=== PATIENT | female | born 1985 | race Caucasian/White ===

== ENCOUNTER 2018-12-24 19:51 | Emergency (ER) | payer MEDICAID ==
[2018-12-24 20:08] VITALS: PULSE 132
[2018-12-24] MEDS ORDERED: methylPREDNISolone Sodium Succinate 40 MG/1 ML SDV IM ONE (20:13)
--- NOTE | 2018-12-24 20:23 | EDM.PDOC ---
ED HPI GENERAL MEDICAL PROBLEM - General Chief Complaint: General Stated Complaint: ALLERGIC REACTION Time Seen by Provider: 12/24/18 20:10 Source of Information: Reports: Patient, Family, RN - History of Present Illness INITIAL COMMENTS - FREE TEXT/NARRATIVE: 33 yr female presents with itching, rash, urticaria,, lip swelling noted. States she was working in the garden today and doesn't know what caused this. She did get in the shower and took Benadryl 50 mg PO at home. States this started around 630/7pm. Urticaria to abdomen is improving, but itching to legs continues. Pt has been anxious with this. 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 History: C Section 13 years ago Social & Family History - Family History Family Medical History: Noncontributory - Caffeine Use Caffeine Use: Reports: Soda ED ROS GENERAL - Review of Systems Review Of Systems: See Below Constitutional: Reports: No Symptoms HEENT: Reports: Other (lip swelling) Respiratory: Reports: No Symptoms Cardiovascular: Reports: No Symptoms Skin: Reports: Pruritis, Urticaria Neurological: Reports: No Symptoms Psychiatric: Reports: No Symptoms Hematologic/Lymphatic: Reports: No Symptoms ED EXAM, GENERAL - Physical Exam Exam: See Below Exam Limited By: No Limitations General Appearance: Alert, No Apparent Distress Ears: Hearing Grossly Normal, Other (some ear lobe swelling) Nose: Normal Inspection, Normal Mucosa Throat/Mouth: Normal Voice, No Airway Compromise, Other (lip swelling) Head: Atraumatic, Normocephalic Neck: Supple, Non-Tender, Full Range of Motion Respiratory/Chest: No Respiratory Distress, Lungs Clear, Normal Breath Sounds Cardiovascular: Normal Peripheral Pulses, Regular Rate, Rhythm, No Edema GI/Abdominal: Normal Bowel Sounds, Soft, Non-Tender Back Exam: Normal Inspection, Full Range of Motion Extremities: Normal Inspection, Normal Range of Motion, No Pedal Edema Neurological: Alert, Oriented, Normal Cognition Psychiatric: Normal Affect, Normal Mood Skin Exam: Warm, Dry, Rash Lymphatic: No Adenopathy Course - Vital Signs Last Recorded V/S: Last Vital Signs Temp 97.9 F 12/24/18 20:00 Pulse 132 H 12/24/18 20:00 Resp 20 12/24/18 20:00 BP 156/110 H 12/24/18 20:00 Pulse Ox 99 12/24/18 20:00 - Orders/Labs/Meds Meds: Medications Discontinued Medications Generic Name Dose Route Start Last Admin Trade Name Queenie PRN Reason Stop Dose Admin Methylprednisolone Sodium Succinate 60 mg 12/24/18 20:13 Solu-Medrol IM 12/24/18 20:14 ONETIME ONE Departure - Departure Time of Disposition: 20:42 Disposition: Home, Self-Care 01 Condition: Good Clinical Impression: Allergic reaction - Discharge Information *PRESCRIPTION DRUG MONITORING PROGRAM REVIEWED*: Not Applicable *COPY OF PRESCRIPTION DRUG MONITORING REPORT IN PATIENT CHARITY: Not Applicable - Assessment/Plan Plan: Solu-Medrol 80 mg IM given. Symptoms improved, lip swelling less, rash less, pt feeling better and less anxious. Recommend use of Benadryl as needed, 1-2 tab every 4-6 hour, not to exceed 12 in 24 hour, for the next 5 days. Rx for Prednisone taper dose, instructed on use. RTC or ER if symptoms worsen, F/U with PCP next week as needed.
[2018-12-24 20:35] VITALS: BP 153/109
== END 2018-12-24 20:40 | disposition home or self-care (01) ==
LOC: LB.ED 19:51
DX: T78.40XA Allergy, unspecified, initial encounter (principal)
CPT/HCPCS: 96372; 99282; J2920

== ENCOUNTER 2021-01-29 00:43 | Emergency (ER) | payer MEDICAID ==
[2021-01-29 00:54] VITALS: BP 131/82; PULSE 103
[2021-01-29] MEDS: methylPREDNISolone Sodium Succinate 125 MG/2 ML SDV IM ONE (00:59)
--- NOTE | 2021-01-29 01:05 | EDM.PDOC ---
ED HPI GENERAL MEDICAL PROBLEM - General Chief Complaint: Allergic Reaction Stated Complaint: ALLERGIC REACTION Time Seen by Provider: 01/29/21 00:50 Source of Information: Reports: Patient History Limitations: Reports: No Limitations - History of Present Illness INITIAL COMMENTS - FREE TEXT/NARRATIVE: patient presented to the ER with a c/o generalized hives all over her body. it occurred while she is asleep. Not sure what she is allergic too. She had shrimp for dinner - but she has shrimps before and was ok. Denies wheezes, CP, no fever or chills. 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 History: C Section 13 years ago - Past Surgical History Female Surgical History: Reports: Section Musculoskeletal Surgical History: Reports: Shoulder Surgery, Other (See Below) Other Musculoskeletal Surgeries/Procedures:: bilateral arthroscopic shoulder surgeries Social & Family History - Family History Family Medical History: No Pertinent Family History - Caffeine Use Caffeine Use: Reports: Soda ED ROS ALLERGIC REACTION - Review of Systems Review Of Systems: See Below Constitutional: Reports: No Symptoms HEENT: Reports: No Symptoms Respiratory: Reports: No Symptoms Cardiovascular: Reports: No Symptoms GI/Abdominal: Reports: No Symptoms Musculoskeletal: Reports: No Symptoms Skin: Reports: Pruritis, Rash Neurological: Reports: No Symptoms ED EXAM GENERAL NO PERIP PULSE - Physical Exam Exam: See Below Exam Limited By: No Limitations General Appearance: Alert, WD/WN, Anxious Eye Exam: Bilateral Eye: EOMI, PERRL Head: Atraumatic Respiratory/Chest: No Respiratory Distress Cardiovascular: Normal Peripheral Pulses Neurological: Alert, Oriented Skin Exam: Rash Course - Vital Signs Last Recorded V/S: Last Vital Signs Temp 36.5 C 01/29/21 00:49 Pulse 103 H 01/29/21 00:49 Resp 18 09/13/21 00:49 BP 131/82 01/29/21 00:49 Pulse Ox 97 01/29/21 00:49 - Orders/Labs/Meds Meds: Medications Discontinued Medications Generic Name Dose Route Start Last Admin Trade Name Queenie PRN Reason Stop Dose Admin Methylprednisolone Sodium Succinate 125 mg 01/29/21 00:58 01/29/21 00:59 Methylprednisolone Sodium Succinate 125 Mg/2 Ml Sdv IM 01/29/21 00:59 125 mg ONETIME ONE Administration - Re-Assessments/Exams Free Text/Narrative Re-Assessment/Exam: 01/29/21 01:05 IM solumedrol was given vitals WNL Departure - Departure Time of Disposition: 01:05 Disposition: Home, Self-Care 01 Condition: Good Clinical Impression: Allergic reaction - Discharge Information *PRESCRIPTION DRUG MONITORING PROGRAM REVIEWED*: Not Applicable *COPY OF PRESCRIPTION DRUG MONITORING REPORT IN PATIENT CHARITY: Not Applicable Prescriptions: methylPREDNISolone [Medrol Dose Pack] 84 mg PO DAILY #1 dospk Instructions: Allergies, Adult Referrals: PCP,Unknown [Primary Care Provider] - Forms: ED Department Discharge Additional Instructions: - ok to continue with benadryl as needed - start taking cortisone as prescribed - prescription was sent to [email or web address] - return to the ER if any worsening of symptoms, otherwise follow up with your PCP Sepsis Event Note (ED) - Focused Exam Vital Signs: Vital Signs Temp Pulse Resp BP Pulse Ox 01/29/21 00:49 36.5 C 103 H 18 131/82 97 - Problem List & Annotations (1) Allergic reaction SNOMED Code(s): 375720104 Code(s): T78.40XA - ALLERGY, UNSPECIFIED, INITIAL ENCOUNTER Status: Acute Priority: Low Current Visit: No Qualifiers: Encounter type: initial encounter Qualified Code(s): T78.40XA - Allergy, unspecified, initial encounter - Problem List Review Problem List Initiated/Reviewed/Updated: Yes - Assessment/Plan Plan: - ok to continue with benadryl as needed - start taking cortisone as prescribed - prescription was sent to [email or web address] pharmacy - return to the ER if any worsening of symptoms, otherwise follow up with your PCP
== END 2021-01-29 01:20 | disposition home or self-care (01) ==
LOC: LB.ED 00:43
DX: T78.1XXA Other adverse food reactions, not elsewhere classified, initial encounter (principal); I10 Essential (primary) hypertension; Z79.899 Other long term (current) drug therapy
CPT/HCPCS: 96372; 99283; J2930

== ENCOUNTER 2023-02-21 21:56 | Emergency (ER) | payer MEDICAID ==
[2023-02-21 22:02] VITALS: BP 153/107; PULSE 110
[2023-02-21] MEDS ORDERED: Lidocaine 1% with EPINEPHrine 1:100,000 20 ML MDV INJECT ONE (22:30)
[2023-02-21] MEDS ORDERED: Bacitracin Oint 1 GM U/D Packet TOP ONE (22:44)
[2023-02-21] MEDS ORDERED: Diphtheria,Pertussis(Acell),Tetanus Vaccine 0.5 ML Syringe IM ONE (22:51)
[2023-02-21] MEDS ORDERED: Lidocaine 1% with EPINEPHrine 1:100,000 50 ML MDV INFILT ONE (22:52)
== END 2023-02-21 22:50 | disposition home or self-care (01) ==
LOC: LB.ED 21:56
DX: S61.411A Laceration without foreign body of right hand, initial encounter (principal); I10 Essential (primary) hypertension; Z23 Encounter for immunization; Z87.891 Personal history of nicotine dependence; Z98.890 Other specified postprocedural states; W25.XXXA Contact with sharp glass, initial encounter; Y93.G3 Activity, cooking and baking
CPT/HCPCS: 12001; 90471; 90715; 99282; 99282-25

== ENCOUNTER 2023-06-01 14:23 | Inpatient (IN) | payer MEDICAID ==
[2023-06-01] MEDS ORDERED: Sodium Chloride 0.9% 10 ML Syringe FLUSH PRN (14:24)
[2023-06-01] MEDS ORDERED: Sodium Chloride 0.9% 1,000 ML IV SCH ×2 (14:30→16:45)
[2023-06-01 14:42] LABS: HEMATOCRIT 39.4 % (37.0-47.0); HEMOGLOBIN 13.7 g/dL (11.5-16.5); MEAN CORPUSCULAR HEMOGLOBIN 33.4 pg (27.0-32.0); MEAN CORPUSCULAR HGB CONC 34.8 g/dL (31.0-35.0); MEAN PLATELET VOLUME 9.5 fL (6.0-10.0); RED BLOOD CELL COUNT 4.1 M/uL (3.80-5.80); RED CELL DISTRIBUTION WIDTH 13.1 % (11.0-16.0); WHITE BLOOD CELL COUNT,WBC 16.7 K/uL (4.0-11.0)
[2023-06-01 14:51] LABS: ETHANOL BLOOD MEDICAL < 3.0 mg/dL (<3.0); LIPASE 33 U/L (16-77)
[2023-06-01] MEDS ORDERED: Ondansetron 4 MG/2 ML SDV IVPUSH ONE (15:12)
[2023-06-01] MEDS ORDERED: LORazepam 2 MG/ML SDV IVPUSH ONE (15:13)
[2023-06-01 15:17] LABS: A/G RATIO 1.1 (0.8-2.0); ALBUMIN 4.9 g/dL (3.4-5.0); ANION GAP 28.8 mmol/L (5.0-15.0); BILIRUBIN TOTAL 0.7 mg/dL (0.0-1.0); BUN/CREATININE RATIO 9.2 (6-25); CALCIUM 6.9 mg/dL (8.5-10.1); CARBON DIOXIDE,CO2 19.1 mmol/L (21.0-32.0); CREATININE 2.07 mg/dL (0.55-1.02); EST CRCL DRUG DOSING (CG) 32.13 mL/min; PHOSPHORUS 2.8 mg/dL (2.5-4.9); PROTEIN TOTAL,TP 9.5 g/dL (6.4-8.2); TROPONIN I HIGH SENSITIVITY 9.6 pg/ml (<=60.4)
[2023-06-01 15:19] LABS: MAGNESIUM 0.3 mg/dL (1.8-2.4); POTASSIUM,K 1.9 mmol/L (3.5-5.1)
[2023-06-01] MEDS ORDERED: Potassium Chloride Riders 10 MEQ in Premix Bag 1 BAG IV ONE (15:23)
[2023-06-01 16:23] LABS: APPEARANCE,URINE TURBID (CLEAR); BILIRUBIN,URINE SMALL (NEGATIVE); COLOR,URINE YELLOW; GLUCOSE,URINE NEGATIVE (NEGATIVE); KETONES,URINE 15 mg/dL (NEGATIVE); LEUKOCYTE ESTERASE,URINE NEGATIVE (NEGATIVE); NITRITE,URINE NEGATIVE (NEGATIVE); OCCULT BLOOD,URINE MODERATE (NEGATIVE); PROTEIN,URINE >=300 mg/dL (NEGATIVE); UROBILINOGEN,URINE 0.2 E.U./dL (0.2-1.0)
[2023-06-01 16:29] LABS: AMPHETAMINES SCREEN, URINE NEGATIVE (NEGATIVE); BARBITURATE SCREEN,URINE NEGATIVE (NEGATIVE); BENZODIAZEPINES SCREEN,URINE NEGATIVE (NEGATIVE); METHADONE SCREEN, URINE NEGATIVE (NEGATIVE); METHAMPHETAMINES SCREEN, URINE NEGATIVE (NEGATIVE); OXYCODONE SCREEN,URINE NEGATIVE (NEGATIVE); RBC,URINE 0-5 /HPF; THC SCREEN,URINE 50 NG/ML POSITIVE (NEGATIVE); WBC,URINE 0-5 /HPF
[2023-06-01 16:30] LABS: AMORPHOUS SEDIMENT,URINE MANY /HPF; BACTERIA,URINE OCCASIONAL /HPF; SQUAMOUS EPITHELIAL CELLS,UR FEW /HPF
[2023-06-01] MEDS ORDERED: Ondansetron 4 MG Tab.DIS PO PRN (17:30)
[2023-06-01] MEDS ORDERED: LORazepam 2 MG/ML SDV IV SCH (17:45)
[2023-06-01] MEDS: NS + KCl 20mEq/L 1,000 ML IV SCH ×2 (18:54→23:15)
[2023-06-01] MEDS: Folic Acid 1 MG Tab PO SCH (18:54)
[2023-06-01] MEDS: Thiamine 100 MG Tab PO SCH (18:54)
[2023-06-02] MEDS: NS + KCl 20mEq/L 1,000 ML IV SCH ×2 (05:20→15:00)
[2023-06-02] MEDS: Thiamine 100 MG Tab PO SCH (07:54)
[2023-06-02] MEDS: Folic Acid 1 MG Tab PO SCH (07:54)
[2023-06-02 08:12] LABS: ANION GAP 14.8 mmol/L (5.0-15.0); BUN/CREATININE RATIO 13.9 (6-25); CARBON DIOXIDE,CO2 24.4 mmol/L (21.0-32.0); CREATININE 0.79 mg/dL (0.55-1.02); EST CRCL DRUG DOSING (CG) 84.19 mL/min; MAGNESIUM 1.6 mg/dL (1.8-2.4)
[2023-06-02 08:19] LABS: CALCIUM 5.5 mg/dL (8.5-10.1); POTASSIUM,K 2.2 mmol/L (3.5-5.1)
[2023-06-02] MEDS ORDERED: Zolpidem 5 MG Tab PO PRN (09:59)
[2023-06-02 10:00] LABS: HEMATOCRIT 31.7 % (37.0-47.0); HEMOGLOBIN 10.7 g/dL (11.5-16.5); MEAN CORPUSCULAR HEMOGLOBIN 33.1 pg (27.0-32.0); MEAN CORPUSCULAR HGB CONC 33.8 g/dL (31.0-35.0); MEAN PLATELET VOLUME 9.7 fL (6.0-10.0); RED BLOOD CELL COUNT 3.23 M/uL (3.80-5.80); RED CELL DISTRIBUTION WIDTH 13.3 % (11.0-16.0); WHITE BLOOD CELL COUNT,WBC 10.5 K/uL (4.0-11.0)
[2023-06-02] MEDS: Acetaminophen 325 MG Tab PO PRN (10:46)
[2023-06-02] MEDS: Calcium Gluconate 10% 1 GM/10 ML SDV IVPUSH SCH ×2 (10:46→19:16)
[2023-06-02] MEDS: Montelukast 10 MG Tab PO SCH (10:46)
[2023-06-02] MEDS: Potassium Chloride 20 MEQ Tab.ER PO SCH ×2 (10:46→19:16)
[2023-06-02] MEDS: Omeprazole 20 MG Cap.CR PO SCH (10:46)
[2023-06-02] MEDS: Gabapentin 100 MG Cap PO SCH ×2 (13:44→19:16)
[2023-06-02] MEDS ORDERED: Potassium Chloride Riders 50 ML ONE (22:38)
[2023-06-02] MEDS ORDERED: predniSONE 10 MG Tab ONE (22:40)
[2023-06-02] MEDS ORDERED: NS + KCl 20mEq/L 1,000 ML IV SCH (23:00)
[2023-06-03] MEDS ORDERED: Hydrochlorothiazide 25 MG Tab PO SCH (08:00)
[2023-06-03] MEDS ORDERED: Lisinopril 20 MG Tab PO SCH (08:00)
[2023-06-03] MEDS: Omeprazole 20 MG Cap.CR PO SCH (08:09)
[2023-06-03] MEDS: Montelukast 10 MG Tab PO SCH (08:09)
[2023-06-03] MEDS: Thiamine 100 MG Tab PO SCH (08:10)
[2023-06-03] MEDS: Potassium Chloride 20 MEQ Tab.ER PO SCH (08:10)
[2023-06-03] MEDS: Gabapentin 100 MG Cap PO SCH ×2 (08:10→14:33)
[2023-06-03] MEDS: Folic Acid 1 MG Tab PO SCH (08:10)
[2023-06-03 08:37] LABS: BUN/CREATININE RATIO 9.5 (6-25); CARBON DIOXIDE,CO2 26.9 mmol/L (21.0-32.0); CREATININE 0.63 mg/dL (0.55-1.02); EST CRCL DRUG DOSING (CG) 105.58 mL/min; MAGNESIUM 1.4 mg/dL (1.8-2.4)
[2023-06-03 08:43] LABS: POTASSIUM,K 2.9 mmol/L (3.5-5.1)
[2023-06-03 08:44] LABS: CALCIUM 5.9 mg/dL (8.5-10.1)
[2023-06-03] MEDS ORDERED: Magnesium Sulfate/Water 50 ML IV ONE (08:55)
[2023-06-03] MEDS ORDERED: Calcium Gluconate 10% 1 GM/10 ML SDV IVPUSH ONE (08:56)
[2023-06-03] MEDS ORDERED: Calcium Gluconate 10% 1 GM/10 ML SDV ONE (11:28)
[2023-06-03] MEDS ORDERED: Magnesium Sulfate/Water 50 ML ONE (11:28)
[2023-06-03] MEDS: Acetaminophen 325 MG Tab PO PRN (11:39)
[2023-06-03 16:16] VITALS: BP 146/99; PULSE 79
[2023-06-03 16:43] LABS: ANION GAP 9.7 mmol/L (5.0-15.0); BUN/CREATININE RATIO 9.5 (6-25); CARBON DIOXIDE,CO2 29.7 mmol/L (21.0-32.0); CREATININE 0.63 mg/dL (0.55-1.02); EST CRCL DRUG DOSING (CG) 105.58 mL/min; POTASSIUM,K 3.4 mmol/L (3.5-5.1)
== END 2023-06-03 17:51 | disposition home or self-care (01) | DRG 641 ==
LOC: LB.ED 14:23 → LB.MS 17:27 → UNDOADMIN 17:30
PROVIDERS: ADMIT Surgery; ATTEND Surgery
DX: E86.0 Dehydration (principal); N17.9 Acute kidney failure, unspecified; E87.6 Hypokalemia; I10 Essential (primary) hypertension; F10.20 Alcohol dependence, uncomplicated; K21.9 Gastro-esophageal reflux disease without esophagitis; E83.42 Hypomagnesemia; E87.8 Other disorders of electrolyte and fluid balance, not elsewhere classified; F17.210 Nicotine dependence, cigarettes, uncomplicated; R11.2 Nausea with vomiting, unspecified; F12.10 Cannabis abuse, uncomplicated; Z79.899 Other long term (current) drug therapy; Z79.52 Long term (current) use of systemic steroids; Z98.890 Other specified postprocedural states; Z98.891 History of uterine scar from previous surgery
CPT/HCPCS: 36415; 70450; 80048; 80053; 80307; 81001; 83690; 83735; 84100; 84484; 85027; 93005; 93010; 96361; 96365; 96368; 96375; 99222; 99232; 99238; 99285-25; A0425; A0429; A9270-GY; J0612; J2060; J2405; J3475; J3480; J7030

== ENCOUNTER 2024-02-09 12:27 | Inpatient (IN) | payer MEDICAID ==
[2024-02-09] MEDS: Ondansetron 4 MG/2 ML SDV IVPUSH ONE (12:38)
[2024-02-09] MEDS: LORazepam 2 MG/ML SDV IVPUSH ONE (12:42)
[2024-02-09] MEDS: Folic Acid 50 MG/10 ML MDV IVPUSH ONE (12:48)
[2024-02-09 12:55] LABS: BASOPHILS ABSOLUTE AUTO 0.04 K/uL (0.02-0.10); BASOPHILS PERCENT AUTO 0.4 % (0.0-0.5); EOSINOPHILS ABSOLUTE AUTO 0.02 K/uL (0.04-0.40); EOSINOPHILS PERCENT AUTO 0.2 % (1.0-5.0); HEMATOCRIT 39.9 % (37.0-47.0); HEMOGLOBIN 14.2 g/dL (11.5-16.5); LYMPHOCYTES ABSOLUTE AUTO 2.27 K/uL (1.50-4.00); LYMPHOCYTES PERCENT AUTO 23.2 % (20.0-40.0); MEAN CORPUSCULAR HEMOGLOBIN 33.2 pg (27.0-32.0); MEAN CORPUSCULAR HGB CONC 35.6 g/dL (31.0-35.0); MEAN CORPUSCULAR VOLUME 93 fL (76-96); MEAN PLATELET VOLUME 9.3 fL (6.0-10.0); MONOCYTES PERCENT AUTO 8.2 % (3.0-10.0); NEUTROPHILS ABSOLUTE AUTO 6.64 K/uL (2.00-7.50); PLATELET COUNT,PLT 323 K/uL (150-500); RED BLOOD CELL COUNT 4.28 M/uL (3.80-5.80); RED CELL DISTRIBUTION WIDTH 13.2 % (11.0-16.0); WHITE BLOOD CELL COUNT,WBC 9.8 K/uL (4.0-11.0)
[2024-02-09] MEDS: Thiamine 200 MG/2 ML MDV IVPUSH ONE (12:56)
[2024-02-09] MEDS: Magnesium Sulfate/Water Premix 50 ML IV ONE (12:58)
[2024-02-09 13:10] LABS: A/G RATIO 1.2 (0.8-2.0); ALBUMIN 4.7 g/dL (3.4-5.0); BILIRUBIN TOTAL 0.9 mg/dL (0.0-1.0); BUN/CREATININE RATIO 7.3 (6-25); CALCIUM 7.6 mg/dL (8.5-10.1); CREATININE 1.23 mg/dL (0.55-1.02); EST CRCL DRUG DOSING (CG) 53.55 mL/min; PROTEIN TOTAL,TP 8.5 g/dL (6.4-8.2)
[2024-02-09 13:13] LABS: ANION GAP 27.1 mmol/L (5.0-15.0); POTASSIUM,K 2.1 mmol/L (3.5-5.1)
[2024-02-09] MEDS ORDERED: NS + KCl 20mEq/L 1,000 ML IV SCH (13:15)
[2024-02-09] MEDS: Potassium Chloride 20 MEQ Tab.ER PO ONE (13:30)
[2024-02-09] MEDS: NS with KCl 40mEq 1,000 ML ONE (13:36)
[2024-02-09] MEDS: NS + KCl 20mEq/L 1,000 ML ONE (13:36)
[2024-02-09] MEDS: NS with KCl 40mEq 1,000 ML IV SCH ×2 (13:36→21:17)
[2024-02-09] MEDS ORDERED: LORazepam 2 MG/ML SDV IVPUSH PRN (14:27)
[2024-02-09] MEDS ORDERED: Sodium Chloride 0.9% 10 ML Syringe FLUSH PRN (14:31)
[2024-02-09] MEDS: Calcium Gluconate 10% 1 GM/10 ML SDV IVPUSH SCH (15:20)
[2024-02-09] MEDS: LORazepam 2 MG/ML SDV IVPUSH SCH (16:29)
[2024-02-09] MEDS: Potassium Chloride 20 MEQ Tab.ER PO SCH (19:51)
[2024-02-09] MEDS: Zolpidem 5 MG Tab PO PRN (21:19)
[2024-02-10] MEDS: NS with KCl 40mEq 1,000 ML IV SCH (01:20)
[2024-02-10] MEDS: Thiamine 100 MG Tab PO SCH (08:20)
[2024-02-10] MEDS: Folic Acid 1 MG Tab PO SCH (08:20)
[2024-02-10 08:40] LABS: A/G RATIO 1.1 (0.8-2.0); ALBUMIN 3.3 g/dL (3.4-5.0); ANION GAP 11.4 mmol/L (5.0-15.0); BUN/CREATININE RATIO 9.3 (6-25); CALCIUM 6.9 mg/dL (8.5-10.1); CARBON DIOXIDE,CO2 23.8 mmol/L (21.0-32.0); CREATININE 0.75 mg/dL (0.55-1.02); EST CRCL DRUG DOSING (CG) 87.82 mL/min; POTASSIUM,K 4.2 mmol/L (3.5-5.1); PROTEIN TOTAL,TP 6.4 g/dL (6.4-8.2)
[2024-02-10] MEDS: Magnesium Sulfate/Water Premix 2 GM in Premix Bag 1 BAG IV ONE (10:32)
[2024-02-10] MEDS: Calcium Carbonate/Vitamin D3 1500 MG-400 Units Tab PO SCH (10:33)
[2024-02-10] MEDS: LORazepam 0.5 MG Tab PO SCH (17:39)
[2024-02-10 18:26] VITALS: BP 136/90; PULSE 75
== END 2024-02-10 17:00 | disposition home or self-care (01) | DRG 641 ==
LOC: LB.ED 12:27 → LB.MS 14:05
PROVIDERS: ADMIT Emergency Medicine; ATTEND Emergency Medicine
DX: E87.6 Hypokalemia (principal); F10.10 Alcohol abuse, uncomplicated; K21.9 Gastro-esophageal reflux disease without esophagitis; E83.51 Hypocalcemia; E86.0 Dehydration; G89.29 Other chronic pain; M54.9 Dorsalgia, unspecified; I10 Essential (primary) hypertension; R56.9 Unspecified convulsions; Z88.8 Allergy status to other drugs, medicaments and biological substances; Z87.891 Personal history of nicotine dependence; Z79.899 Other long term (current) drug therapy
CPT/HCPCS: 36415; 80053; 80307; 84132; 85025; 96365; 96375; 99222; 99238; 99285-25; A9270-GY; J0612; J2060; J2405; J3411; J3475; J3480; J3490

== ENCOUNTER 2024-03-05 11:56 | Inpatient (IN) | payer MEDICAID ==
[2024-03-05] MEDS ORDERED: Sodium Chloride 0.9% 10 ML Syringe FLUSH PRN (12:10)
[2024-03-05 12:27] LABS: BASOPHILS ABSOLUTE AUTO 0.03 K/uL (0.02-0.10); BASOPHILS PERCENT AUTO 0.3 % (0.0-0.5); EOSINOPHILS ABSOLUTE AUTO 0.07 K/uL (0.04-0.40); EOSINOPHILS PERCENT AUTO 0.6 % (1.0-5.0); HEMATOCRIT 34.4 % (37.0-47.0); HEMOGLOBIN 11.7 g/dL (11.5-16.5); LYMPHOCYTES ABSOLUTE AUTO 1.15 K/uL (1.50-4.00); LYMPHOCYTES PERCENT AUTO 10.3 % (20.0-40.0); MEAN CORPUSCULAR HEMOGLOBIN 33.3 pg (27.0-32.0); MEAN CORPUSCULAR VOLUME 98 fL (76-96); MEAN PLATELET VOLUME 9.6 fL (6.0-10.0); MONOCYTES ABSOLUTE AUTO 0.98 K/uL (0.20-0.80); MONOCYTES PERCENT AUTO 8.8 % (3.0-10.0); NEUTROPHILS ABSOLUTE AUTO 8.92 K/uL (2.00-7.50); PLATELET COUNT,PLT 231 K/uL (150-500); RED BLOOD CELL COUNT 3.51 M/uL (3.80-5.80); RED CELL DISTRIBUTION WIDTH 13.4 % (11.0-16.0); WHITE BLOOD CELL COUNT,WBC 11.2 K/uL (4.0-11.0)
[2024-03-05 12:49] LABS: ALANINE AMINOTRANSFERASE,ALT 25 U/L (12-78); ALBUMIN 3.5 g/dL (3.4-5.0); ALKALINE PHOSPHATASE 59 U/L (46-116); ASPARTATE AMNIOTRANSFERASE,AST 23 U/L (15-37); BILIRUBIN TOTAL 1.1 mg/dL (0.0-1.0); BLOOD UREA NITROGEN,BUN 6 mg/dL (8-26); BUN/CREATININE RATIO 9.4 (6-25); CALCIUM 6.7 mg/dL (8.5-10.1); CARBON DIOXIDE,CO2 29.3 mmol/L (21.0-32.0); CHLORIDE,CL 101 mmol/L (98-107); CREATININE 0.64 mg/dL (0.55-1.02); ESTIMATED GFR 116 mL/min (>60); GLUCOSE RANDOM 101 mg/dL (74-100); SODIUM,NA 143 mmol/L (136-145)
[2024-03-05 12:52] LABS: ANION GAP 15.4 mmol/L (5.0-15.0)
[2024-03-05 12:55] LABS: ETHANOL BLOOD MEDICAL < 3.0 mg/dL (<3.0); POTASSIUM,K 2.7 mmol/L (3.5-5.1); TROPONIN I HIGH SENSITIVITY 68.8 pg/ml (<=60.4)
[2024-03-05] MEDS: Lactated Ringers 1,000 ML IV ONE (13:10)
[2024-03-05 13:16] LABS: APPEARANCE,URINE CLEAR (CLEAR); COLOR,URINE YELLOW; PH,URINE 7.5 (5.0-8.0)
[2024-03-05 13:17] LABS: BILIRUBIN,URINE NEGATIVE (NEGATIVE); GLUCOSE,URINE NEGATIVE (NEGATIVE); KETONES,URINE 80 mg/dL (NEGATIVE); LEUKOCYTE ESTERASE,URINE TRACE (NEGATIVE); NITRITE,URINE NEGATIVE (NEGATIVE); OCCULT BLOOD,URINE TRACE-INTACT (NEGATIVE); PROTEIN,URINE NEGATIVE (NEGATIVE); UROBILINOGEN,URINE 0.2 E.U./dL (0.2-1.0)
[2024-03-05 13:19] LABS: RBC,URINE 0-5 /HPF; SQUAMOUS EPITHELIAL CELLS,UR FEW /HPF; WBC,URINE 0-5 /HPF
[2024-03-05] MEDS: Potassium Chloride Riders 10 MEQ in Premix Bag 1 BAG IV SCH (13:19)
[2024-03-05] MEDS ORDERED: Thiamine 100 MG in Sodium Chloride 0.9% 100 ML IV SCH (13:30)
[2024-03-05] MEDS: POTASSIUM CHLORIDE ONE (14:11)
[2024-03-05] MEDS ORDERED: Thiamine 200 MG/2 ML MDV IVPUSH ONE (14:30)
[2024-03-05] MEDS: Labetalol 100 MG/20 ML MDV IVPUSH ONE (14:53)
[2024-03-05] MEDS: LORazepam 2 MG/ML SDV IVPUSH PRN (14:56)
[2024-03-05] MEDS: LORazepam 2 MG/ML SDV ONE (15:15)
[2024-03-05] MEDS: Ondansetron 4 MG/2 ML SDV IVPUSH ONE (15:21)
[2024-03-05] MEDS: Lisinopril 20 MG Tab PO SCH (15:28)
[2024-03-05] MEDS: Labetalol 100 MG/20 ML MDV ONE (17:26)
[2024-03-05] MEDS: Thiamine 200 MG/2 ML MDV IVPUSH SCH (17:37)
[2024-03-05] MEDS: Multivitamin Tab PO SCH (17:37)
[2024-03-05] MEDS: Calcium Gluconate 10% 1 GM/10 ML SDV IVPUSH ONE (18:28)
[2024-03-05] MEDS: Folic Acid 50 MG/10 ML MDV IV SCH (18:32)
[2024-03-05] MEDS: Lactated Ringers 1,000 ML IV SCH (19:00)
[2024-03-05] MEDS: Calcium Gluconate 10% 1 GM/10 ML SDV ONE (19:16)
[2024-03-05] MEDS: Ondansetron 4 MG/2 ML SDV ONE (19:32)
[2024-03-05] MEDS: Thiamine 100 MG Tab ONE (19:43)
[2024-03-05] MEDS: Multivitamin Tab ONE (19:46)
[2024-03-05] MEDS: MVI, Adult with Vitamin K 10 ML SDV IV ONE (19:47)
[2024-03-05] MEDS: POTASSIUM CHLORIDE RIDERS IV ONE (21:15)
[2024-03-05] MEDS: Zolpidem 5 MG Tab PO SCH (22:13)
[2024-03-05 23:40] LABS: A/G RATIO 0.9 (0.8-2.0); ANION GAP 12.9 mmol/L (5.0-15.0); BILIRUBIN TOTAL 0.9 mg/dL (0.0-1.0); BUN/CREATININE RATIO 5.2 (6-25); CALCIUM 7.1 mg/dL (8.5-10.1); CARBON DIOXIDE,CO2 28.6 mmol/L (21.0-32.0); CREATININE 0.58 mg/dL (0.55-1.02); EST CRCL DRUG DOSING (CG) 113.57 mL/min; MAGNESIUM 1.8 mg/dL (1.8-2.4); PROTEIN TOTAL,TP 6.2 g/dL (6.4-8.2); TROPONIN I HIGH SENSITIVITY 36.9 pg/ml (<=60.4)
[2024-03-05 23:48] LABS: POTASSIUM,K 2.5 mmol/L (3.5-5.1)
[2024-03-06] MEDS: Potassium Chloride Riders 10 MEQ in Premix Bag 1 BAG IV SCH (00:40)
[2024-03-06] MEDS: Calcium Gluconate 10% 1 GM/10 ML SDV IVPUSH ONE (00:45)
[2024-03-06] MEDS: Calcium Gluconate 10% 1 GM/10 ML SDV ONE (00:52)
[2024-03-06] MEDS: Acetaminophen 325 MG Tab PO PRN (05:15)
[2024-03-06 08:30] LABS: A/G RATIO 0.9 (0.8-2.0); ANION GAP 10.3 mmol/L (5.0-15.0); BILIRUBIN TOTAL 0.9 mg/dL (0.0-1.0); BUN/CREATININE RATIO 3.6 (6-25); CALCIUM 7.3 mg/dL (8.5-10.1); CREATININE 0.55 mg/dL (0.55-1.02); EST CRCL DRUG DOSING (CG) 119.76 mL/min; MAGNESIUM 1.7 mg/dL (1.8-2.4); POTASSIUM,K 3.3 mmol/L (3.5-5.1); PROTEIN TOTAL,TP 6.2 g/dL (6.4-8.2)
[2024-03-06] MEDS: Folic Acid 50 MG/10 ML MDV IVPUSH SCH (08:51)
[2024-03-06] MEDS: Acetaminophen 500 MG Tab PO ONE (09:46)
[2024-03-06 09:55] VITALS: BP 135/89; PULSE 66
[2024-03-06] MEDS ORDERED: Zolpidem 5 MG Tab PO SCH (20:00)
== END 2024-03-06 10:15 | disposition home or self-care (01) | DRG 641 ==
LOC: LB.ED 11:56 → LB.MS 16:58
PROVIDERS: ADMIT Surgery; ATTEND Surgery
DX: E86.0 Dehydration (principal); E83.42 Hypomagnesemia; E83.51 Hypocalcemia; E87.6 Hypokalemia; I10 Essential (primary) hypertension; M54.9 Dorsalgia, unspecified; G89.29 Other chronic pain; K21.9 Gastro-esophageal reflux disease without esophagitis; G40.909 Epilepsy, unspecified, not intractable, without status epilepticus; Z87.891 Personal history of nicotine dependence; Z98.890 Other specified postprocedural states; Z79.899 Other long term (current) drug therapy
CPT/HCPCS: 36415; 71045; 80053; 80307; 81001; 83735; 84484; 85025; 93010; 99222; 99238; A9270-GY; J0612; J1921; J2060; J2405; J3411; J3475; J3480; J3490; J7120; U0002

== ENCOUNTER 2024-03-08 13:21 | Emergency (ER) | payer MEDICAID ==
[2024-03-08] MEDS: amLODIPine 5 MG Tab PO ONE (13:43)
[2024-03-08 14:12] LABS: BUN/CREATININE RATIO 9.4 (6-25); CALCIUM 9.1 mg/dL (8.5-10.1); CARBON DIOXIDE,CO2 27.6 mmol/L (21.0-32.0); CREATININE 0.64 mg/dL (0.55-1.02); EST CRCL DRUG DOSING (CG) 102.92 mL/min; POTASSIUM,K 3.6 mmol/L (3.5-5.1)
[2024-03-08 15:06] VITALS: BP 195/121; PULSE 72
== END 2024-03-08 14:48 | disposition home or self-care (01) ==
LOC: LB.ED 13:21
DX: I10 Essential (primary) hypertension (principal); K21.9 Gastro-esophageal reflux disease without esophagitis; Z79.899 Other long term (current) drug therapy; Z91.048 Other nonmedicinal substance allergy status
CPT/HCPCS: 36415; 80048; 83735; 93005; 93010; 99283; 99284; A9270-GY